=== PATIENT | male | born 1970 | race African-American/Black ===

== ENCOUNTER 2021-08-25 10:30 | Day surgery (SDC) | payer OTHER ==
[2021-08-25 10:29] LABS: Absolute Lymphocytes (CBC) 0.4 K/uL (0.7-4.9); Hematocrit 36.5 % (39.6-49.0); Lymphocytes % 7.6 % (15.3-44.8); MPV 7.9 fL (7.6-11.3); RBC Red Blood Cell Count 3.72 M/uL (4.33-5.43)
--- NOTE | 2021-08-25 10:40 | RAD REPORT ---
EXAM DESCRIPTION: RAD - Chest Pa And Lat (2 Views) - 08/25/2021 10:30 am CLINICAL HISTORY: pre op COMPARISON: No comparisons FINDINGS: Lines: Right IJ approach dialysis catheter. The tip overlies the right atrium. Lungs: No evidence of edema or pneumonia. Pleural: No significant pleural effusions or pneumothorax. Cardiac: Cardiomegaly. Bones: No acute fractures. Sternotomy. Other: IMPRESSION: No acute cardiopulmonary disease.
[2021-08-25] MEDS ORDERED: BUPIVACAINE 0.25% PF 10 ML VIAL ONE (10:58)
[2021-08-25] MEDS ORDERED: NA CHLORIDE 0.9% 1,000 ML ONE (11:00)
[2021-08-25] MEDS ORDERED: CEFAZOLIN SODIUM 1 GM/VIAL ONE (11:00)
[2021-08-25] MEDS ORDERED: NA CHLORIDE 0.9% 50 ML ONE (11:00)
[2021-08-25 11:03] LABS: Albumin 3.3 g/dL (3.4-5.0); Bilirubin Total 0.6 mg/dL (0.2-1.0); Protein, Total 6.6 g/dL (6.4-8.2)
[2021-08-25] MEDS ORDERED: HEPARIN 500 UNIT/5 ML SYR IV ONE (11:20)
[2021-08-25] MEDS ORDERED: MIDAZOLAM HCL 2 MG/2 ML INJ ONE (11:47)
[2021-08-25] MEDS ORDERED: propofoL 200 MG/20 ML VIAL IV ONE (11:47)
[2021-08-25] MEDS ORDERED: ROCURONIUM 50 MG/5 ML VIAL IV ONE (11:47)
[2021-08-25] MEDS ORDERED: FENTANYL CITR 100 MCG/2 ML ONE (11:47)
[2021-08-25] MEDS ORDERED: GLYCOPYRROLATE 0.2 MG/ML SYR ONE (11:47)
[2021-08-25] MEDS ORDERED: ONDANSETRON 4 MG/2 ML VIAL ONE ×2 (11:48→13:11)
[2021-08-25] MEDS ORDERED: NEOSTIGMINE 1 MG/ML -5 ML ONE (11:48)
[2021-08-25] MEDS ORDERED: SUCCINYLCHOLINE 20 MG/ML (10 ML) IV ONE (11:56)
--- NOTE | 2021-08-25 12:48 | P.OP ---
Complex Care Nurse: Olman Cummins Preoperative diagnosis: End Stage Renal Disease Postoperative diagnosis: End Stage Renal Disease Primary procedure: Laparoscopic Placement of Peritoneal Dialysis Catheter Anesthesia: GETA + Local Estimated blood loss: <2cc Specimen: none Findings: 100% fluid returned Complications: None Implants: Wiley Double cuffed Peritoneal Dialysis Catheter Transferred to: Recovery Room Condition: Good
[2021-08-25] MEDS: HYDROMORPHONE HCL 1 MG/ML INJ ONE ×2 (13:15→13:30)
[2021-08-25 14:09] VITALS: BP 126/78; TEMP 97.3
[2021-08-25] MEDS ORDERED: HYDROCODONE/APAP 10/325 TAB ONE (14:20)
[2021-08-25 15:16] VITALS: O2SAT 96
--- NOTE | 2021-08-26 00:46 | OP ---
Date of Procedure: 08/25/2021 Surgeon: Deshaun Lux MD, Preoperative Diagnosis: End-stage renal disease. Postoperative Diagnosis: End-stage renal disease. Procedure Performed: Laparoscopic placement of peritoneal dialysis catheter. Anesthesia: General endotracheal plus local with 0.25% Marcaine without epinephrine. Estimated Blood Loss: Less than 2 cc. Specimen: None. Findings: 100% fluid returned that was given into the peritoneal cavity, which was approximately 1 L . Complications: None. Implants: Merit double cuffed standard peritoneal dialysis catheter. Disposition: Patient was transferred to recovery room in good condition. Procedure In Detail: After informed consent was obtained, patient was brought to the operating room, prepped and draped in the usual sterile fashion. After adequate anesthesia achieved, an area of the left upper quadrant was anesthetized with 0.25% Marcaine, sharply incised. A 5 mm 0 degree optical trocar was introduced in the abdomen without complication. Insufflation was obtained to 15 mmHg at t his time. No injury to vital structures upon entry into the abdomen. The abdomen was inspected at t his point. It was pre-stenciled prior to initiation of the procedure for placement of a standard per itoneal dialysis catheter with the left abdominal exit using the pre-made stenciling set. At this po int, I anesthetized the skin at the insertion site along the course of the rectus sheath with 0.25% M arcaine without epinephrine. I made an incision overlying the skin and I placed the introducer sheat h aiming toward the patient's pelvis/coccyx based on the pre-markings. The introducer sheath was pravin adia without incident or complication. A dilatation was performed at this point. I then aligned the catheter with the blue stripe posterior to it for a central curvature into the pelvis and placed the single cuff just beyond the anterior rectus sheath into the rectus muscle. At this point, I placed t he tunneling device and made a small griffin incision on the access site and passed the catheter through the tunneling aspect and brought it out through the skin. I then secured the cap onto the end of th e catheter at this point. At this point, 1 L of fluid was instilled after completely desufflating th e abdomen and 1 L was immediately returned within 5 minutes and I recapped the saline at this point a fter completely getting all the saline back and I inspected the abdomen once again using the laparosc opic 30-degree camera. Everything was found to be in good position at this point, and therefore, the abdomen completely desufflated under direct visualization without evidence of complication. Trocars were removed. All skin incisions were copiously irrigated and closed with 4-0 Monocryl in a running fashion. Dermabond placed over top. The catheter was then flushed with heparinized saline and a st erile dressing placed over top. Patient tolerated the procedure well without evidence of complicatio n and transferred to PACU in good condition. All counts were correct at the end of the case. SAVANNAH/CARLYN Voice ID: [id number] Report ID: [id number]
--- NOTE | 2021-08-26 11:10 | EKG ---
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
== END 2021-08-25 15:05 | disposition home or self-care (01) ==
LOC: OR 10:30
PROVIDERS: ATTEND Surgery
PROC: 0WHG43Z Insertion of Infusion Device into Peritoneal Cavity, Percutaneous Endoscopic Approach (ICD-10-PCS; principal; 2021-08-25 12:00)
DX: N18.6 End stage renal disease (principal); Z99.2 Dependence on renal dialysis; Z20.822 Contact with and (suspected) exposure to COVID-19
CPT/HCPCS: 93005; 85025; 36415; 86900; 86850; 85610; 86901; 85730; 80053; 71046; 49324; U0003; J2704; J2250; J3010; J1170; J2710; J1642; J7030; J2405 ×2; J0690; J0330

== ENCOUNTER 2021-11-03 10:06 | Day surgery (SDC) | payer OTHER ==
[2021-11-03 10:20] LABS: Absolute Lymphocytes (CBC) 0.4 K/uL (0.7-4.9); Hematocrit 29.4 % (39.6-49.0); Lymphocytes % 10.7 % (15.3-44.8); MPV 7.1 fL (7.6-11.3); RBC Red Blood Cell Count 3.09 M/uL (4.33-5.43)
[2021-11-03 10:43] LABS: Potassium 4.5 mmol/L (3.5-5.1)
[2021-11-03] MEDS ORDERED: CEFAZOLIN SODIUM 1 GM/VIAL ONE (10:46)
[2021-11-03] MEDS ORDERED: NA CHLORIDE 0.9% 500 ML ONE (10:46)
[2021-11-03] MEDS ORDERED: NA CHLORIDE 0.9% 50 ML ONE (10:46)
[2021-11-03] MEDS ORDERED: MIDAZOLAM HCL 2 MG/2 ML INJ ONE (11:20)
[2021-11-03] MEDS ORDERED: ROCURONIUM 50 MG/5 ML VIAL IV ONE (11:20)
[2021-11-03] MEDS ORDERED: LIDOCAINE 1% MPF 5 ML VIAL ONE (11:20)
[2021-11-03] MEDS ORDERED: FENTANYL CITR 100 MCG/2 ML ONE (11:20)
[2021-11-03] MEDS ORDERED: propofoL 200 MG/20 ML VIAL IV ONE (11:20)
[2021-11-03] MEDS ORDERED: NA CHLORIDE 0.9% 1,000 ML ONE (11:49)
[2021-11-03] MEDS ORDERED: BUPIVACAINE 0.25% PF 10 ML VIAL ONE (11:49)
[2021-11-03] MEDS ORDERED: HEPARIN 500 UNIT/5 ML SYR IV ONE (11:52)
[2021-11-03] MEDS ORDERED: ONDANSETRON 4 MG/2 ML VIAL ONE (12:39)
[2021-11-03] MEDS ORDERED: SUGAMMADEX SODIUM 200 MG/2 ML VIAL IV ONE (13:01)
--- NOTE | 2021-11-03 13:04 | P.OP ---
Preoperative diagnosis: Peritoneal Dialysis Catheter Dysfunction Postoperative diagnosis: Peritoneal Dialysis Catheter Dysfunction Primary procedure: Laparoscopic Revision of Peritoneal Dialysis Catheter Secondary procedure: Laparoscopic abdominal exploration Anesthesia: GETA + Local Estimated blood loss: <5cc Specimen: none Findings: necrosed ometum within tubing Complications: None Transferred to: Recovery Room Condition: Good
[2021-11-03] MEDS: HYDRALAZINE HCL 20 MG/ML VIAL ONE ×2 (13:30→13:37)
[2021-11-03] MEDS: FENTANYL CITR 100 MCG/2 ML ONE ×2 (13:32→13:44)
[2021-11-03 13:47] VITALS: O2SAT 100
[2021-11-03 14:15] VITALS: BP 139/84; TEMP 97.5
[2021-11-03] MEDS ORDERED: HYDROCODONE/APAP 7.5/325 MG TAB ONE (14:30)
--- NOTE | 2021-11-04 02:08 | OP ---
Date of Procedure: 11/03/2021 Surgeon: Deshaun Lux MD, Preoperative Diagnosis: Peritoneal dialysis catheter dysfunction. Postoperative Diagnosis: Peritoneal dialysis catheter dysfunction. Procedure Performed: 1.Laparoscopic revision of peritoneal dialysis catheter. 2.Laparoscopic abdominal exploration. Anesthesia: General endotracheal plus local with 0.25% Marcaine. Estimated Blood Loss: 5 cc. Specimen: None. Findings: Necrosed omentum contained within tubing consistent with significant suction applied tubin g. Complications: None. The patient was transferred to recovery room in good condition. Procedure In Detail: After informed consent was obtained, the patient was brought to the operating r oom, prepped and draped in usual sterile fashion. After adequate anesthesia was achieved, left upper quadrant previous incision was reopened and a 5 mm 0-degree optical trocar was introduced in the abd omen without evidence of complication. Insufflation was obtained at 15 mmHg, at this time. There wa s no injury to vital structures upon entry into the abdomen. Additional trocar placed in the left lo wer quadrant, one placed in the right upper quadrant, obviously anesthetized and sharply incised. A 5 mm trocar was placed under direct vision without evidence of complication. I grasped the peritonea l dialysis catheter coming out of the left abdomen, which appeared to be in good position. However, it was encased within the segment of omentum which appeared and sucked within the contents of the tub ing as such I uncurled this and tried to reduce it manually intraperitoneal, but was unsuccessful as such I passed it through the trocar to exteriorize the portion of the catheter. I then cleaned out t he tubing manually with gentle traction and removed all the intratubing contents. I then irrigated i t extraperitoneal, passed it intraperitoneal back and resumed it in the normal position in the pelvis . I then irrigated it with a 50 cc syringe which pumped 50 cc in quite easily. This 50 cc was entir melissa returned. At this point, I then infused 1 L of saline into the abdomen and got back 950 cc back under pressure infusion and gravity drainage while the abdomen was completely desufflated. At this p oint, the abdomen was re-insufflated and the area was inspected. No additional fluid was appreciated . We got 950 cc at 1 L infused and no hemostat was required. The abdomen was then desufflated under direct visualization without evidence of complication. All skin incisions were then copiously irrig ated and closed with a 4-0 Monocryl in a running fashion. Dermabond was placed over top. The patien t tolerated the procedure well without evidence of complication and transferred to PACU in good condi tion. All counts were correct at the end of the case. The catheter was then filled with 500 units o f heparinized saline in 5 cc and the cap was replaced and Surgicel placed over top. SAVANNAH/CARLYN Voice ID: [id number] Report ID: [id number]
== END 2021-11-03 14:29 | disposition home or self-care (01) ==
LOC: OR 10:06
PROVIDERS: ATTEND Surgery
PROC: 0WWG43Z Revision of Infusion Device in Peritoneal Cavity, Percutaneous Endoscopic Approach (ICD-10-PCS; principal; 2021-11-03 10:00)
DX: T85.691A Other mechanical complication of intraperitoneal dialysis catheter, initial encounter (principal); N18.6 End stage renal disease; Z99.2 Dependence on renal dialysis; Z20.822 Contact with and (suspected) exposure to COVID-19
CPT/HCPCS: 85025; 80048; 36415; 49325; U0003; J0360; J2704; J2250; J3010 ×2; J1642; J7040; J7030; J2405; J0690